=== PATIENT | female | born 1945 | race Caucasian/White ===

== ENCOUNTER 2018-05-04 09:24 | Emergency (ER) | payer MEDICARE, OTHER ==
[~2018-05-04] VITALS: Ht 167.6 cm; Wt 88.9 kg
[2018-05-04] MEDS ORDERED: CEFAZOLIN SOD 1 GM/NS 50ML 100 ML IV ONE ×2 (09:45→10:00)
[2018-05-04] MEDS ORDERED: CEFTRIAXONE SOD 1 GM VIAL IV ONE (10:15)
[2018-05-04] MEDS ORDERED: CEFTRIAXONE SOD 1 GM VIAL IM ONE (10:15)
[2018-05-04 10:17] VITALS: BP 141/90
== END 2018-05-04 10:45 | disposition home or self-care (01) ==
LOC: FSED 09:24
DX: M25.572 Pain in left ankle and joints of left foot (principal); L03.116 Cellulitis of left lower limb
CPT/HCPCS: 99283; J0696